=== PATIENT | female | born 1970 | race Caucasian/White ===

== ENCOUNTER → 2016-09-09 | Outpatient (CLI) | payer OTHER ==
--- NOTE | 2016-09-09 20:42 | WWHP ---
CHIEF COMPLAINT: The patient is here for her routine gynecologic exam. HPI: This is a 46-year-old G3, P3 with an LMP of 08/23/2016. She is status post tubal ligation. She is without gynecologic complaints. Periods have been regular every month. PAST MEDICAL HISTORY: Elevated cholesterol, chronic hypertension and depression. Lu Damian, the nurse practitioner, is her primary caregiver. MEDICATIONS: 1. Fenofibrate 145 mg daily. 2. Losartan K 50 mg daily. 3. Lexapro 20 mg daily. 4. Calcium supplement 500 mg b.i.d. ALLERGIES TO SULFA, WHICH CAUSED A RASH. 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 SOCIAL HISTORY: She denies tobacco, alcohol, and drug use. 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 REVIEW OF SYSTEMS: She has lost about 23 pounds over the past 2 years with diet and exercise. She denies respiratory, cardiac or GI problems. PHYSICAL EXAM: Blood pressure 144/75. Height 5 feet 4 inches. Weight 200 pounds. Temperature 96.8, pulse 54. This is a well-developed, well-nourished white female who is alert and oriented x3, in no acute distress. HEENT is within normal limits. NECK: Supple without mass or thyromegaly. CHEST AND LUNGS: Clear to auscultation. HEART: Regular rate and rhythm. Breasts are without mass or discharge. Axillary is negative for adenopathy. BACK: Negative for CVA tenderness. ABDOMEN: Soft, nontender, without palpable masses. PELVIC: Normal external genitalia. Cervix and vagina appear normal. There is no evidence of prolapse. The uterus is midposition, nongravid size and nontender. There are no palpable adnexal masses or tenderness. Rectal is negative for mass or tenderness and is negative for occult blood. EXTREMITIES: Nontender. IMPRESSION: 1. A 46-year-old gynecologically healthy female, who is status post tubal ligation. 2. Mildly elevated blood pressure. PLAN: 1. Pap smear was performed. 2. Self-breast examination was discussed. 3. Mammogram was recently done in [place] per the patient and she states they will be sending me a copy. 4. We have discussed her elevated blood pressure. I have recommended that she have her blood pressure checked on a regular basis either at home or at work. She will follow up with her primary caregiver for her elevated blood pressure. 5. Osteoporosis prevention was discussed. 6. She will return in 1 year.
== END | disposition home or self-care (01) ==
LOC: WWCWWP 08:32
PROVIDERS: ATTEND Obstetrics & Gynecology

== ENCOUNTER → 2018-04-21 | Outpatient (CLI) | payer OTHER ==
[2018-04-21 09:46] VITALS: BP 144/83; PULSE 71; TEMP 97.9; BMI 38.6
--- NOTE | 2018-04-21 10:19 | P.HPOB ---
History of Present Illness H&P Date: 04/21/18 Chief Complaint: The patient is here for her routine gynecologic exam. This is a 47-year-old G3 PIII with an LMP of 08/23/2016. The patient is status post tubal ligation. She is without gynecologic complaints. Her menses have been regular every month. Review of Systems The patient has gained 25 pounds over the last year. This is after losing about 23 pounds the prior 2 years. The weight loss was with prescription medication and this was discontinued. She denies respiratory, cardiac, or G.I. problems. Past Medical History Past Medical History: Hyperlipidemia, Hypertension Additional Past Medical History / Comment(s): PAST DESKTOP ENGINEER HISTORY: She has no history of STDs. 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 - Past Family History Mother Family Medical History: Cancer (Multiple myeloma and non-Hodgkin's lymphoma.) Medications and Allergies Home Medications Medication Instructions Recorded Confirmed Type Calcium Carbonate [Calcium] 600 mg PO DAILY 04/21/18 04/21/18 History Cholecalciferol [Vitamin D3] 125 unit PO DAILY@1200 04/21/18 04/21/18 History Escitalopram Oxalate [Lexapro] 20 mg PO DAILY 04/21/18 04/21/18 History Losartan [Cozaar] 50 mg PO DAILY 04/21/18 04/21/18 History Lovastatin [Mevacor] 20 mg PO HS 04/21/18 04/21/18 History Allergies Allergy/AdvReac Type Severity Reaction Status Date / Time Sulfa (Sulfonamide AdvReac Rash/Hives Unverified 04/21/18 09:33 Antibiotics) Exam Vital Signs Temp Pulse BP 04/21/18 09:42 97.9 F 71 144/83 Intake and Output 04/20/18 04/21/18 04/21/18 22:59 06:59 14:59 Other: Weight 102.058 kg Height 5'4", weight 225 pounds, BMI 38.6. This is a well-developed well-nourished heavyset white female who is alert and oriented times 3 in no acute distress. HEENT: Within normal limits. NECK: Supple without mass or thyromegaly. CHEST AND LUNGS: Clear to auscultation. HEART: Regular rate and rhythm. BREASTS: Are without mass or discharge. AXILLARY EXAM: Negative for adenopathy. BACK: Negative for CVA tenderness. ABDOMEN: Soft, nontender, without palpable masses. PELVIC EXAM: Normal external genitalia. Cervix and vagina appear normal. There is no unusual discharge. There is no evidence of prolapse. The uterus is midposition, nongravid size and nontender. There are no palpable adnexal masses or tenderness. RECTAL EXAM: negative for mass or tenderness and is negative for occult blood. EXTREMITIES: Nontender. IMPRESSION: 1. 47-year-old female with normal gynecologic exam. 2. Previous tubal sterilization PLAN: 1. Pap smear was deferred since she had a normal one last year. 2. Self breast awareness was discussed with the patient. 3. Screening mammogram was done at [employer] on 03/23/2018 and was negative. She has brought the report with her and will be scanned. 4. Osteoporosis prevention was discussed. 5. We discussed the importance of good nutrition and regular exercise for weight control. 6. She will return in one year.
== END ==
LOC: WWCWWP 09:17
PROVIDERS: ATTEND Obstetrics & Gynecology
DX: Z53.9 Procedure and treatment not carried out, unspecified reason (principal)

== ENCOUNTER → 2020-09-26 | Outpatient (CLI) | payer OTHER ==
[2020-09-26 08:03] VITALS: BP 153/79; PULSE 70; RESP 18; TEMP 97.9
--- NOTE | 2020-09-26 08:42 | P.HPOB ---
History of Present Illness H&P Date: 09/26/20 Chief Complaint: The patient is here for her routine gynecologic exam. This is a 50-year-old with an LMP of 09/22/2020. The patient states her menstrual periods are about every 3-4 weeks. She has occasional mild hot flashes which are not very bothersome. She is status post tubal ligation. She is otherwise without gynecologic complaints. Review of Systems The patient has lost 15 pounds over the last year. She denies respiratory, cardiac, or G.I. problems. Past Medical History Past Medical History: Hyperlipidemia, Hypertension Additional Past Medical History / Comment(s): PAST BENEFITS ANALYST HISTORY: She has no history of STDs. History of Any Multi-Drug Resistant Organisms: None Reported Past Surgical History: Section, Cholecystectomy, Tubal Ligation Past Psychological History: Depression Smoking Status: Never smoker Past Alcohol Use History: None Reported Past Drug Use History: None Reported - Past Family History Mother Family Medical History: Cancer Additional Family Medical History / Comment(s): Multiple myeloma and non- Hodgkin's lymphoma. Father Family Medical History: Myocardial Infarction (PR) Additional Family Medical History / Comment(s): with Covid being a partial cause. Medications and Allergies Home Medications Medication Instructions Recorded Confirmed Type Calcium Carbonate [Calcium] 600 mg PO DAILY 04/21/18 09/26/20 History Cholecalciferol [Vitamin D3] 125 unit PO DAILY@1200 04/21/18 09/26/20 History Escitalopram Oxalate [Lexapro] 20 mg PO DAILY 04/21/18 09/26/20 History Losartan [Cozaar] 50 mg PO DAILY 04/21/18 09/26/20 History Lovastatin [Mevacor] 20 mg PO HS 04/21/18 09/26/20 History Cyanocobalamin (Vitamin B-12) 1,000 mcg PO DAILY 09/26/20 09/26/20 History [Vitamin B-12] Multivitamin [Multivitamins Adult 1 each PO DAILY 09/26/20 09/26/20 History Gummies] Allergies Allergy/AdvReac Type Severity Reaction Status Date / Time Sulfa (Sulfonamide AdvReac Rash/Hives Unverified 09/26/20 07:52 Antibiotics) Exam Vital Signs Temp Pulse Resp BP Pulse Ox 09/26/20 07:54 97.9 F 70 18 153/79 97 Intake and Output 09/25/20 09/26/20 09/26/20 22:59 06:59 14:59 Other: Weight 95.254 kg Height 5 feet 3 inches, weight 210 pounds, BMI 37.2. This is a well-developed well-nourished white female who is alert and oriented times 3 in no acute distress. HEENT: Within normal limits. NECK: Supple without mass or thyromegaly. CHEST AND LUNGS: Clear to auscultation. HEART: Regular rate and rhythm. BREASTS: Are without mass or discharge. AXILLARY EXAM: Negative for adenopathy. BACK: Negative for CVA tenderness. ABDOMEN: Soft, nontender, without palpable masses. PELVIC EXAM: Normal external genitalia. Cervix and vagina appear normal. There is a small amount of menstrual blood in the back of the vagina consistent with her LMP. There is no unusual discharge. There is no evidence of prolapse. The uterus is midposition, nongravid size and nontender. There are no palpable adnexal masses or tenderness. RECTAL EXAM: Rectovaginal exam is negative for mass or tenderness and is negative for occult blood. EXTREMITIES: Nontender. IMPRESSION: 1. 50-year-old perimenopausal female status post tubal ligation with normal gynecologic exam. 2. Elevated blood pressure with a history of chronic hypertension. PLAN: 1. Pap smear cotest was performed. 2. Self breast awareness was discussed with the patient. 3. Screening mamm[facility] was [facility] at [facility] on 07/10/2020 and was benign. 4. Osteoporosis prevention was discussed. I have stressed the importance of adequate calcium, vitamin D and regular exercise. Recommended amounts of calcium and vitamin D were also discussed. 5. We have discussed her elevated blood pressure. I have recommended that she check her blood pressure on a regular basis and follow up with her PCP for blood pressure elevations. 6. She has had one dose of the Covid vaccination and plans on getting the next one in the near future. 7. She will continue to keep a menstrual calendar and call if menstrual problems. 8. She was advised to return in one year for her annual well woman exam.
== END ==
LOC: WWCWWP 07:37
PROVIDERS: ATTEND Obstetrics & Gynecology
DX: Z01.419 Encounter for gynecological examination (general) (routine) without abnormal findings (principal); I10 Essential (primary) hypertension; E78.5 Hyperlipidemia, unspecified; F32.9 Major depressive disorder, single episode, unspecified; Z98.51 Tubal ligation status